=== PATIENT | female | born 1995 | race Caucasian/White ===

== ENCOUNTER 2017-02-20 16:45 | Emergency (ER) | payer OTHER ==
[2017-02-20 16:54] VITALS: O2SAT 95
--- NOTE | 2017-02-20 20:11 | EDPHY ---
H & P Time Seen by Provider: 02/20/17 19:00 HPI/ROS: CHIEF COMPLAINT: Sore throat, left upper quadrant pain HISTORY OF PRESENT ILLNESS: The patient is a 21-year-old female who presents emergency department with complaint of sore throat and left upper quadrant pain. Her sore throat started last night. It is worse with swallowing. She describes the pain is severe. This is worse than previous sore throat. She denies fevers or chills. No nausea or vomiting. Patient states that she had hematoma in her spleen from 2 years ago. She has mild left upper quadrant discomfort. She was seen in urgent care. They gave her prednisone orally and a prescription for both prednisone and azithromycin. This into the emergency department because of her left upper quadrant pain. REVIEW OF SYSTEMS: My complete review of systems is negative except as mentioned in the HPI. Past Medical/Surgical History: Includes PTSD, depression, anxiety Past surgical history: Negative Social history: Patient denies drug use Smoking Status: Never smoked Physical Exam: Vitals noted. 37.3, 123/85, 107, 18 GENERAL: Well-appearing, in no acute distress, alert. HEENT: Eyes normal to inspection, no signs of dehydration. Patient has mild pharyngeal erythema. Uvula is midline. There is no significant tonsillar swelling. No visible retropharyngeal or peritonsillar abscess. No discharge. NECK: No thyromegaly, mild bilateral anterior lymphadenopathy, supple. RESPIRATORY: Clear to auscultation bilaterally, no rales, rhonchi or wheezing. CVS: Regular rate and rhythm, no rubs, murmurs, or gallops. ABDOMEN: Soft, the mild left upper quadrant tenderness palpation with no rebound or guarding, nondistended, no organomegaly. BACK: Normal to inspection, no CVA tenderness. SKIN: Normal color, no rash, warm, dry. No pallor. EXTREMITIES: No pedal edema, no joint swelling. NEURO/PSYCH: Alert and oriented, normal mood and affect, normal motor sensory exam. Constitutional: Initial Vital Signs Temperature (C) 37.3 C 02/20/17 16:51 Heart Rate 107 H 02/20/17 16:51 Respiratory Rate 18 02/20/17 16:51 Blood Pressure 123/85 H 02/20/17 16:51 O2 Sat (%) 95 02/20/17 16:51 O2 Delivery Mode Room Air Allergies/Adverse Reactions: morphine Allergy (Intermediate, Verified 02/20/17 16:49) hives, vomiting codeine Allergy (Mild, Verified 02/20/17 16:51) GI Penicillins Allergy (Unknown, Verified 02/20/17 16:50) Home Medications: Medication Instructions Recorded Azithromycin [Zithromax] 500 mg PO 02/20/17 Medical Marijuana 02/20/17 predniSONE [predniSONE TAPER] 1 each PO 02/20/17 Medical Decision Making - Diagnostics Imaging Results: Imaging Impressions Abdomen Ultrasound 02/20/17 20:02 Impression: Normal ultrasound appearance of the spleen and left kidney. Findings discussed with KATHY SHEPEHRD 02/20/2017 at 21:41. ED Course/Re-evaluation: In the emergency department I discussed possible etiologies with the patient. I answered all her questions. A Monospot test was performed. Because of her left upper quadrant pain ultrasound was performed. The patient was given Toradol 30 mg IV. Monospot negative The ultrasound: Please refer the dictated report. No acute disease noted. I discussed the results with the patient. I answered all her questions. The patient has a prescription for both azithromycin and prednisone. She will take these medications. She is given warnings prior to leaving. She will return with worsening symptoms. Differential Diagnosis: My differential includes but is not limited to pharyngitis, retropharyngeal abscess or peritonsillar abscess, tracheitis, epiglottitis, mononucleosis, splenic hemorrhage - Data Points Laboratory Results: 02/20/17 20:30 Monoscreen NEGATIVE (NEGATIVE) Departure - Departure Disposition: Home, Routine, Self-Care Clinical Impression: Abdominal pain, acute, left upper quadrant Acute pharyngitis Qualifiers: Pharyngitis/tonsillitis etiology: other specified organisms Qualified Code(s): J02.8 - Acute pharyngitis due to other specified organisms Condition: Good Instructions: Pharyngitis (ED), Abdominal Pain (ED) Additional Instructions: Return with increasing pain, shortness of breath, difficulty swallowing, persistent fever or any other concerns. Referrals: Norberto Mcknight MD [Medical Doctor] - 5-7 days, if not improved
[2017-02-20 22:19] VITALS: BP 119/75; PULSE 81; RESP 16; TEMP 98.6
== END 2017-02-20 22:16 | disposition home or self-care (01) ==
DX: J02.8 Acute pharyngitis due to other specified organisms (principal); B96.89 Other specified bacterial agents as the cause of diseases classified elsewhere; R10.12 Left upper quadrant pain

== ENCOUNTER 2017-05-07 22:20 | Emergency (ER) | payer OTHER ==
[2017-05-07 22:29] VITALS: BP 115/75; PULSE 89; RESP 18; TEMP 97.9; O2SAT 95
[2017-05-07] MEDS ORDERED: IBUPROFEN 600 MG TAB PO ONE (22:29)
--- NOTE | 2017-05-07 22:45 | EDPHY ---
H & P Stated Complaint: foot injury last nite swelling pain today l foot HPI/ROS: HPI CHIEF COMPLAINT: Left ankle pain status post fall. HISTORY OF PRESENT ILLNESS: This patient 21-year-old female she is otherwise healthy does have a history of chronic pain, anxiety and PTSD, she presents emergency room with left ankle pain. Patient reports that she fell last night. She does not recall any of the details of the event and she was highly intoxicated with alcohol. She reports that she was drunk woke up this morning with left ankle pain. She does not remember the events. She denies any other areas of injury. She denies knee pain or upper leg pain complains of 6/10 left ankle pain. Worse when she bears weight. Past Medical History: Anxiety, PTSD, chronic pain Past Surgical History: No recent surgery Social History: Denies daily use of drugs. Drank a large amount of alcohol last night. Family History: Noncontributory ROS REVIEW OF SYSTEMS: A comprehensive 10 point review of systems is otherwise negative aside from elements mentioned in the history of present illness. Exam Constitutional triage nursing summary reviewed, vital signs reviewed, awake/ alert. Eyes normal conjunctivae and sclera, EOMI, PERRLA. HENT normal inspection, atraumatic, moist mucus membranes, no epistaxis, neck supple/ no meningismus, no raccoon eyes. Respiratory clear to auscultation bilaterally, normal breath sounds, no respiratory distress, no wheezing. Cardiovascular rate normal, regular rhythm, no murmur, no edema, distal pulses normal. Gastrointestinal soft, non-tender, no rebound, no guarding, normal bowel sounds, no distension, no pulsatile mass. Genitourinary no CVA tenderness. Musculoskeletal left lower extremity: Tender palpation over both malleolus, tender palpation over the left posterior Achilles, however Achilles intact, ecchymosis noted over the left anterior knee but no tenderness or swelling. She has full range of motion of the left ankle. His neurovascular intact. Good cap refill. Good distal pulse. no midline vertebral tenderness, full range of motion, no calf swelling, no tenderness of extremities, no meningismus, good pulses, neurovascularly intact. Skin pink, warm, & dry, no rash, skin atraumatic. Neurologic awake, alert and oriented x 3, AAOx3, moves all 4 extremities equally, motor intact, sensory intact, CN II-XII intact, normal cerebellar, normal vision, normal speech. Psychiatric normal mood/affect. Heme/Lymph/Immune no lymphadenopathy. Differential Diagnosis: Includes but is not limited to in a particular order ankle sprain, ankle fracture, musculoskeletal strain, soft tissue injury Medical Decision Making: Plan for this patient ibuprofen for pain control. Ice pack, x-ray left ankle. Re-evaluation: X-ray of the left ankle reviewed. No acute fracture visualized. 2316: Patient feeling slightly better after ibuprofen. Additionally I have placed this patient in a walking boot for comfort. Recommend anti-inflammatory pain medicine. Recommend keeping leg elevated, walking boot as tolerated. Follow up with Orthopedics. Patient most likely has ankle sprain. I do not see a fracture on her x-ray. Source: Patient - Personal History LMP (Females 10-55): 22-28 Days Ago Current Tetanus/Diphtheria Vaccine: Yes Current Tetanus Diphtheria and Acellular Pertussis (TDAP): Yes - Medical/Surgical History Hx Asthma: No Hx Chronic Respiratory Disease: No Hx Diabetes: No Hx Cardiac Disease: No Hx Renal Disease: No Hx Cirrhosis: No Hx Alcoholism: No Hx HIV/AIDS: No Hx Splenectomy or Spleen Trauma: No Other PMH: chronic pain. PTSD. depression. anxiety. appy. wisdom teeth. dnc miscarriage. 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 - Social History Smoking Status: Current some day smoker Constitutional: Initial Vital Signs Temperature (C) 36.6 C 05/07/17 22:24 Heart Rate 89 05/07/17 22:24 Respiratory Rate 18 05/07/17 22:24 Blood Pressure 115/75 05/07/17 22:24 O2 Sat (%) 95 05/07/17 22:24 O2 Delivery Mode Room Air Allergies/Adverse Reactions: morphine Allergy (Intermediate, Verified 02/20/17 16:49) hives, vomiting codeine Allergy (Mild, Verified 02/20/17 16:51) GI Penicillins Allergy (Unknown, Verified 02/20/17 16:50) cefpodoxime [From Vantin] Allergy (Verified 05/07/17 22:23) Pertussis Vaccines Allergy (Verified 05/07/17 22:23) Home Medications: Medication Instructions Recorded Medical Marijuana 02/20/17 Medical Decision Making - Diagnostics Imaging Results: Imaging Impressions Ankle X-Ray 05/07/17 22:29 Impression: Negative left ankle series. - Data Points Medications Given: Discontinued Medications Ibuprofen (Motrin) 600 mg PO EDNOW ONE Stop: 05/07/17 22:30 Last Admin: 05/07/17 22:52 Dose: 600 mg Departure - Departure Disposition: Home, Routine, Self-Care Clinical Impression: Ankle sprain Qualifiers: Encounter type: initial encounter Involved ligament of ankle: other ligament Laterality: left Qualified Code(s): S93.492A - Sprain of other ligament of left ankle, initial encounter Condition: Good Instructions: Ankle Sprain (ED) Additional Instructions: 1. Elevate her foot. 2. Ice her ankle. 3. Take Tylenol or Motrin for pain control. 4. Use your Walking boot to help support your ankle and foot. 5. Follow up with Orthopedics. Referrals: NONE *PRIMARY CARE P,. [Primary Care Provider] - As per Instructions Sherif Wilkins MD [Medical Doctor] - As per Instructions
== END 2017-05-07 23:56 | disposition home or self-care (01) ==
DX: S93.492A Sprain of other ligament of left ankle, initial encounter (principal); F17.200 Nicotine dependence, unspecified, uncomplicated; W19.XXXA Unspecified fall, initial encounter
CPT/HCPCS: L4386

== ENCOUNTER 2017-06-06 20:36 | Emergency (ER) | payer OTHER ==
[2017-06-06] MEDS ORDERED: ONDANSETRON DISINTEGRATING 4 MG TAB PO ONE (20:41)
[2017-06-06] MEDS ORDERED: ONDANSETRON 4 MG/2 ML VIAL IVP ONE (21:11)
[2017-06-06] MEDS ORDERED: NS 1,000 ML IV ONE (21:11)
[2017-06-06 21:51] LABS: PLATELET COUNT 287 10^3/uL (150-400)
[2017-06-06] MEDS ORDERED: ONDANSETRON 4MG PREPACK#2 BTL TAKEHOME ONE (22:12)
--- NOTE | 2017-06-06 22:14 | EDPHY ---
H & P Stated Complaint: N/V, blood in vomit Time Seen by Provider: 06/06/17 21:23 HPI/ROS: HPI The patient presents with nausea, vomiting, diarrhea. Her diarrhea began 3 days ago and was watery without any blood. She had 1 episode of vomiting 2 days ago. Then, this afternoon she had multiple episodes of nonbloody nonbilious emesis that eventually became bloody. She thinks she vomited a total of 30 times. The blood is described as streaks of blood in her vomit. This is happened to her 1 time before when she had appendicitis. She has not had a fever. She denies any sick contacts. She does not have any abdominal pain. She has a prescription for Zofran at home but did not take it. REVIEW OF SYSTEMS Constitutional: No fever, no chills. Eyes: No discharge. ENT: No sore throat. Cardiovascular: No chest pain, no palpitations. Respiratory: No cough, no shortness of breath. Gastrointestinal: See HPI Genitourinary: No hematuria. Musculoskeletal: No back pain. Skin: No rashes. Neurological: No headache. PMHx: Chronic pain, PTSD, anxiety, depression Soc Hx: From [place] originally, works locally in [place], uses marijuana PHYSICAL General Appearance: Alert, no distress Eyes: Pupils equal and round no pallor or injection ENT, Mouth: Mucous membranes moist Respiratory: There are no retractions, lungs are clear to auscultation Cardiovascular: Regular rate and rhythm Gastrointestinal: Abdomen is soft and non-tender, no masses, bowel sounds normal Neurological: A&O, moves all extremities Skin: Warm and dry, no rashes Musculoskeletal: Neck is supple non tender Extremities: symmetrical, full range of motion Psychiatric: Patient is oriented X 3, there is no agitation Source: Patient Exam Limitations: No limitations - Personal History LMP (Females 10-55): 8-14 Days Ago Current Tetanus/Diphtheria Vaccine: Yes - Medical/Surgical History Hx Asthma: No Hx Chronic Respiratory Disease: No Hx Diabetes: No Hx Cardiac Disease: No Hx Renal Disease: No Hx Cirrhosis: No Hx Alcoholism: No Hx HIV/AIDS: No Hx Splenectomy or Spleen Trauma: No Other PMH: chronic pain. PTSD. depression. anxiety. appy. wisdom teeth. dnc miscarriage. 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 - Social History Smoking Status: Current some day smoker Constitutional: Initial Vital Signs Heart Rate 83 01/25/18 20:37 Respiratory Rate 18 06/06/17 20:37 Blood Pressure 100/75 06/06/17 20:37 O2 Sat (%) 100 06/06/17 20:37 O2 Delivery Mode Room Air Allergies/Adverse Reactions: morphine Allergy (Intermediate, Verified 06/06/17 20:40) hives, vomiting codeine Allergy (Mild, Verified 06/06/17 20:40) GI Penicillins Allergy (Unknown, Verified 06/06/17 20:40) cefpodoxime [From Vantin] Allergy (Verified 06/06/17 20:40) Pertussis Vaccines Allergy (Verified 06/06/17 20:40) Home Medications: Medication Instructions Recorded Medical Marijuana 02/20/17 Sertraline HCl 06/06/17 traMADol 06/06/17 Medical Decision Making Differential Diagnosis: 21-year-old female with history of chronic pain, PTSD, anxiety and depression presents with nausea and vomiting which eventually became bloody. On exam, she is well-appearing, vital signs are normal, she appears well hydrated, her abdominal exam is benign. She does not have any ongoing vomiting here. Differential diagnosis includes Karolina-Berkowitz tear, stress gastritis, viral gastroenteritis. Emergency department, patient was given IV fluids and Zofran with improvement in her symptoms. She was able to tolerate fluids by mouth. Labs were checked and demonstrated a leukocytosis which I could be related to viral illness verses her vomiting. She is well enough to go home. She does have a local primary care doctor. We have discussed supportive measures which is clear liquid diet and rest. We discussed return precautions. - Data Points Laboratory Results: Laboratory Results 06/06/17 21:15 06/06/17 21:15 06/06/17 06/06/17 21:15 21:15 WBC 16.27 10^3/uL H 10^3/uL (3.80-9.50) RBC 5.16 10^6/uL 10^6/uL (4.18-5.33) Hgb 12.7 g/dL g/dL (12.6-16.3) Hct 38.7 % % (38.0-47.0) MCV 75.0 fL L fL (81.5-99.8) MCH 24.6 pg L pg (27.9-34.1) MCHC 32.8 g/dL g/dL (32.4-36.7) RDW 18.9 % H % (11.5-15.2) Plt Count 287 10^3/uL 10^3/uL (150-400) MPV 11.7 fL fL (8.7-11.7) Neut % (Auto) 88.9 % H % (39.3-74.2) Lymph % (Auto) 5.0 % L % (15.0-45.0) [place] % (Auto) 5.3 % % (4.5-13.0) Eos % (Auto) 0.1 % L % (0.6-7.6) Baso % (Auto) 0.2 % L % (0.3-1.7) Nucleat RBC Rel Count 0.0 % % (0.0-0.2) Absolute Neuts (auto) 14.47 10^3/uL H 10^3/uL (1.70-6.50) Absolute Lymphs (auto) 0.81 10^3/uL L 10^3/uL (1.00-3.00) Absolute Monos (auto) 0.86 10^3/uL H 10^3/uL (0.30-0.80) Absolute Eos (auto) 0.02 10^3/uL L 10^3/uL (0.03-0.40) Absolute Basos (auto) 0.03 10^3/uL 10^3/uL (0.02-0.10) Absolute Nucleated RBC 0.00 10^3/uL 10^3/uL (0-0.01) Immature Gran % 0.5 % % (0.0-1.1) Immature Gran # 0.08 10^3/uL 10^3/uL (0.00-0.10) Sodium 138 mEq/L mEq/L (135-145) Potassium 3.8 mEq/L mEq/L (3.5-5.2) Chloride 100 mEq/L mEq/L (97-110) Carbon Dioxide 23 mEq/l mEq/l (22-31) Anion Gap 15 mEq/L mEq/L (8-16) BUN 10 mg/dL mg/dL (7-23) Creatinine 0.7 mg/dL mg/dL (0.6-1.0) Estimated GFR > 60 Glucose 125 mg/dL H mg/dL (70-100) Calcium 10.3 mg/dL mg/dL (8.5-10.4) Medications Given: Discontinued Medications Sodium Chloride (Ns) 1,000 mls @ 3,000 mls/hr IV ONCE ONE Stop: 06/06/17 21:30 Last Admin: 06/06/17 21:12 Dose: 1,000 mls Ondansetron HCl (Zofran Odt) 4 mg PO EDNOW ONE Stop: 06/06/17 20:42 Last Admin: 06/06/17 20:42 Dose: 4 mg Ondansetron HCl (Zofran) 4 mg IVP EDNOW ONE Stop: 06/06/17 21:12 Last Admin: 06/06/17 21:15 Dose: 4 mg Departure - Departure Disposition: Home, Routine, Self-Care Clinical Impression: Nausea & vomiting Qualifiers: Vomiting type: unspecified Vomiting Intractability: non-intractable Qualified Code(s): R11.2 - Nausea with vomiting, unspecified Hematemesis Qualifiers: Nausea presence: with nausea Qualified Code(s): K92.0 - Hematemesis Condition: Good Instructions: Gastroenteritis (ED), Karolina-Berkowitz Syndrome (ED) Additional Instructions: I recommend that you drink small sips of clear liquids throughout the day until your feeling better. You can take the medication as prescribed to help with nausea and vomiting. You should be much better in 1-2 days. If not you should follow up with your primary care doctor. You should return to the emergency room if your worse in any way. Referrals: NONE *PRIMARY CARE P,. [Primary Care Provider] - As per Instructions
[2017-06-06 23:17] VITALS: BP 110/55; PULSE 87; RESP 16; O2SAT 95
== END 2017-06-06 23:15 | disposition home or self-care (01) ==
DX: K92.0 Hematemesis (principal); F17.200 Nicotine dependence, unspecified, uncomplicated
CPT/HCPCS: 96374; J2405

== ENCOUNTER 2017-09-16 22:36 | Emergency (ER) | payer OTHER ==
[2017-09-16 22:43] VITALS: BP 127/65
--- NOTE | 2017-09-16 23:11 | EDPHY ---
General Time Seen by Provider: 09/16/17 23:08 Narrative: CHIEF COMPLAINT: Wrist injury, fall HISTORY OF PRESENT ILLNESS: Patient complains of left wrist pain after falling off of her longboard earlier today. She says that she was at a skate park when she fell off of her long board, onto an outstretched left hand. She felt a sudden onset of pain in the left wrist and heard a pop sound. No numbness or tingling but she does have increasing pain. No rated as severe. It is the entire left wrist including the snuffbox. No pain in the hand, elbow or shoulder. No head strike or loss of consciousness. No weakness. No other associated complaints or modifying factors. ESTABLISHED ORTHOPEDIST: None locally REVIEW OF SYSTEMS: Ten systems reviewed and are negative unless otherwise noted in the HPI PAST MEDICAL HISTORY: Uncomplicated PAST SURGICAL HISTORY: No recent surgeries SOCIAL HISTORY: Daily smoker. Lives here independently. Recently moved from [place]. Works FAMILY HISTORY: EXAMINATION General Appearance: Alert, no distress HEENT: Normocephalic atraumatic. Pupils equal, round reactive. Cardiovascular: Radial pulses are symmetric 2+. There is brisk cap refill the fingers left hand. Neurological: A&O, radial, ulnar and median distributions are symmetric. Interossei strength symmetric. Skein Yarn Dyer Helper strength is symmetric. 2 point sensation intact in left thumb middle finger Skin: Warm and dry, no rash. No petechiae. No purpura. No puncture laceration Extremities: Tenderness of the left wrist circumferentially including the snuffbox. No crepitus or deformity. No tenderness of the phalanges, radial head or left shoulder. There is full extension of the left shoulder without any hesitation or any pain. There is decreased flexion extension of the wrist due to pain but no wrist drop. Psychiatric: Mood and affect normal DIFFERENTIAL DIAGNOSES: Including but not limited to sprain, strain, fracture, dislocation, subluxation MDM: 11:05 p.m. Acute left wrist sprain after falling from her long board. This is on her non dominant left upper extremity. I have reviewed the x-ray without the aid of the radiologist, and I do not appreciate any acute fracture. Specifically I do not appreciate any fracture in the scaphoid. Given that she does have pain in this area she will be placed in a thumb spica splint to protect from occult fracture. We discussed mandatory outpatient follow up with Orthopedics for definitive care and lost her pain completely resolved. We discussed ED precautions, ice elevation. She is comfortable this plan and discharged home stable condition. SUPERVISION: This patient was independently evaluated without direct involvement of or examination by the attending physician. ED Precautions: Worsening pain. Erythema, edema, cyanosis, pallor, paresthesia or anesthesia. - History Smoking Status: Current every day smoker - Objective Vital Signs: Initial Vital Signs Temperature (C) 98.1 F 09/16/17 22:38 Heart Rate 102 H 09/16/17 22:38 Respiratory Rate 18 09/16/17 22:38 Blood Pressure 127/65 H 09/16/17 22:38 O2 Sat (%) 98 09/16/17 22:38 O2 Delivery Mode Room Air Allergies/Adverse Reactions: morphine Allergy (Intermediate, Verified 09/16/17 22:41) hives, vomiting codeine Allergy (Mild, Verified 09/16/17 22:41) GI Penicillins Allergy (Unknown, Verified 09/16/17 22:41) cefpodoxime [From Vantin] Allergy (Verified 09/16/17 22:41) Pertussis Vaccines Allergy (Verified 09/16/17 22:41) Home Medications: Medication Instructions Recorded Medical Marijuana 02/20/17 Departure - Departure Disposition: Home, Routine, Self-Care Clinical Impression: Fall from skateboard, initial encounter Left wrist sprain Qualifiers: Encounter type: initial encounter Qualified Code(s): S63.502A - Unspecified sprain of left wrist, initial encounter Condition: Good Instructions: Wrist Sprain (ED) Additional Instructions: 1. Ice and elevation often 2. Ibuprofen [id number], 400 mg every 6-8 hours as needed 3. Contact Orthopedics for definitive care. The number has been provided on your paperwork 4. I have also provided the on-call primary care physician if he would like to establish with them 5. ED precautions for worsening pain, numbness, tingling, weakness Referrals: Ilene Fried MD [Medical Doctor] - As per Instructions Caryn Villasenor MD [Medical Doctor] - As per Instructions Stand Alone Forms: Work Excuse
== END 2017-09-16 23:19 | disposition home or self-care (01) ==
DX: S63.502A Unspecified sprain of left wrist, initial encounter (principal); F17.200 Nicotine dependence, unspecified, uncomplicated; V00.131A Fall from skateboard, initial encounter; Y92.830 Public park as the place of occurrence of the external cause; Y99.8 Other external cause status; Y93.51 Activity, roller skating (inline) and skateboarding
CPT/HCPCS: L3807